=== PATIENT | female | born 1960 | race Caucasian/White ===

== ENCOUNTER 2016-08-26 18:36 | Inpatient (IN) | payer BC ==
[~2016-08-26] VITALS: Ht 165.1 cm; Wt 65.2 kg
[~2016-08-26 18:36] MED LIST: AMBIEN CR12.5 MG PO; ASPIRIN325 MG PO; AZITHROMYCIN250 MG PO; CELEBREX100 MG PO; CELEBREX200 MG PO; CLARITIN10 M3 PO; CLONAZEPAM0.5 MG PO; DIAZEPAM10 MG PO; DIAZEPAM5 MG PO; DOLOPHINE HCL10 MG PO; DOMP10T PO; DOMPERIDONE1 GM PO; DURAGESIC50 MCG TD; EFFIENT5 MG PO; ELAVIL25 MG PO; FLEXERIL10 MG PO; FOLIC ACID1 MG PO; KADIAN20 MG PO; LIPITOR40 MG PO; MORPHINE PUMP; NAPRELAN750 MG PO; NAPROXEN500 MG PO; NUCYNTA50 MG PO; OMEPRAZOLE40 M1 PO; PERCOCET 10-321 EACH PO; PERCOCET 10/1 TABLET PO; PROMETHAZINE HC25 M1 PO; PROTONIX40 MG PO; RESTORIL7.5 MG PO; TREXALL7.5 MG PO; VENTOLIN HFA18 GM IH; [UNRECOGNIZED DRUG - REMARK]
[2016-08-26 19:28] LABS: HEMATOCRIT 37.1 % (36.0-46.0); MCH 27.9 PG (29.0-34.0); MCHC 33.4 G/DL (30.0-36.0); MCV 83.6 FL (83-99); MEAN PLAT.VOLUME 10.4 uM^3 (9.5-12.4); PLATELET COUNT 399 K/uL (156-360); RBC DIS.WIDTH-CV 16.7 % (11.8-14.6); RBC DIS.WIDTH-SD 49.3 % (39-53); RED BLOOD COUNT 4.44 M/uL (3.80-5.20)
[2016-08-26 19:42] LABS: CHLORIDE 107 mEq/L (99-109); POTASSIUM 3.8 mEq/L (3.7-5.4); SODIUM 140 mEq/L (136-147)
[2016-08-26 19:44] LABS: GLUCOSE 145 mg/dL (70-99)
[2016-08-26 19:46] LABS: ANION GAP 11 MEQ/L (2-14); TOTAL BILIRUBIN 0.2 mg/dL (0.0-1.0)
[2016-08-26 19:48] LABS: ALKALINE PHOSPHATASE 177 IU/L (3-129); GFR ESTIMATE (CALCULATED) > 59 mL/min/
[2016-08-26 19:49] LABS: UREA NITROGEN (BUN) 15 mg/dL (9-23)
[2016-08-26 19:51] LABS: LIPASE 16 U/L (1.0-51.0)
[2016-08-26 20:28] LABS: EOSINOPHIL (%) 0.1 % (0-5); IMMATURE GRANULOCYTE (%) 0.3 % (0.0-0.7); IMMATURE GRANULOCYTE COUNT 0.5 K/uL; LYMPHOCYTE COUNT 1.2 K/uL (1.0-2.8); NEUTROPHIL (%) 86.2 % (45-76); NEUTROPHIL COUNT 14.6 K/uL (1.8-6.4)
[2016-08-26 22:33] LABS: ADD MIUA? YES; BILIRUBIN NEGATIVE; BLOOD SMALL; COLOR YELLOW ((YELLOW)); GLUCOSE (STRIP) NEGATIVE; KETONES 5; LEUKOCYTES TRACE; NITRITE NEGATIVE; PROTEIN (STRIP) 100; SPECIFIC GRAVITY 1.014 (1.000-1.030); UROBILINOGEN 0.2 MG/DL (0.2-1.0)
[2016-08-26 22:40] LABS: BACTERIA RARE /HPF; EPITHELIAL CELLS RARE /HPF; MUCUS NONE SEEN /LPF; RED BLOOD CELLS 0-5 /HPF (0-5); UCUL ADDED? NO; WHITE BLOOD CELLS 0-5 /HPF (0-5)
[2016-08-27] MEDS ORDERED: PROTONIX40 MG PO (01:18)
[2016-08-27] MEDS ORDERED: EFFEXOR XR75 MG PO (01:19)
[2016-08-27] MEDS ORDERED: ZOFRAN ODT4 MG PO (01:20)
[2016-08-27] MEDS ORDERED: ERGOCALCIF50000 UNIT PO (01:20)
[2016-08-27] MEDS ORDERED: BUSPAR10 MG PO (01:20)
[2016-08-27] MEDS ORDERED: PROMETHAZINE12.5 MG PR (01:21)
[2016-08-27 03:53] LABS: APPEARANCE CLEAR/COLORLESS
[2016-08-27 04:21] LABS: RED CELL AREA COUNTED 18; RED CELL DILUTION 1
[2016-08-27 04:22] LABS: WBC DILUTION 1
[2016-08-27 04:23] LABS: RED CELL COUNT 1 /MM^3 (0-1); WBC AREA COUNTED 18
[2016-08-27 04:26] LABS: WHITE CELL COUNT 3 /MM^3 (0-5); WHITE CELL RAW COUNT 5
[2016-08-27 04:27] LABS: CSF EOSINOPHILS 0 % (0-25); MONO RAW COUNT 48; MONONUCLEAR WBC'S 96 % (50-90); POLY RAW COUNT 2; POLYNUCLEAR WBC'S 4 % (0-3)
[2016-08-27 04:33] LABS: SPINAL FLD COMMENT OCCASIONAL MONOCYTES
[2016-08-27 06:18] VITALS: BP 120/66
[2016-08-27 06:59] VITALS: BP 116/63
[2016-08-27 07:11] LABS: HEMATOCRIT 32.7 % (36.0-46.0); MCH 27.6 PG (29.0-34.0); MCHC 32.7 G/DL (30.0-36.0); MCV 84.5 FL (83-99); MEAN PLAT.VOLUME 10.4 uM^3 (9.5-12.4); PLATELET COUNT 400 K/uL (156-360); RBC DIS.WIDTH-SD 51.1 % (39-53); RED BLOOD COUNT 3.87 M/uL (3.80-5.20); WHITE BLOOD COUNT 15.7 K/uL (4.1-10.2)
[2016-08-27 07:20] LABS: CARBON DIOXIDE (BICARBONATE) 25.7 MEQ/L (20-31)
[2016-08-27 07:24] LABS: TROP-I INTERPRETATION NEGATIVE; TROPONIN-I < 0.01 ng/mL (0.0-0.30)
[2016-08-27 07:27] LABS: ANION GAP 10 MEQ/L (2-14); CHLORIDE 111 MEQ/L (99-109); POTASSIUM 3.6 MEQ/L (3.7-5.4); SAMPLE HEMOLYSIS CHECK 0; SAMPLE ICTERIC CHECK 0; SAMPLE LIPEMIA CHECK 0; SODIUM 142 MEQ/L (136-147); TOTAL BILIRUBIN 0.2 MG/DL (0.0-1.0)
[2016-08-27 07:33] LABS: ALKALINE PHOSPHATASE 148 IU/L (3-129); GFR ESTIMATE (CALCULATED) > 59 mL/min/; GLUCOSE 125 mg/dL (70-99); UREA NITROGEN (BUN) 12 mg/dL (9-23)
[2016-08-27 07:43] LABS: EOSINOPHIL (%) 0.6 % (0-5); EOSINOPHIL COUNT 0.1 K/uL (0-0.3); IMMATURE GRANULOCYTE (%) 0.4 % (0.0-0.7); IMMATURE GRANULOCYTE COUNT 0.1 K/uL; LYMPHOCYTE COUNT 1.9 K/uL (1.0-2.8); MONOCYTE (%) 9.2 % (3-12); MONOCYTE COUNT 1.5 K/uL (0-0.8); NEUTROPHIL (%) 77.3 % (45-76); NEUTROPHIL COUNT 12.2 K/uL (1.8-6.4)
[2016-08-27 10:09] LABS: INTER. NORMALIZED RATIO 1.1; PROTHROMBIN TIME 10.9 (9.2-11.2)
[2016-08-27 10:41] VITALS: BP 126/62
[2016-08-27 14:23] LABS: AMPHETAMINES QUANT VALUE 0 NG/ML; BARBITUATES QUANT VALUE 0 NG/ML; BENZODIAZEPINES, URINE SCREEN POSITIVE (200 ng/mL); MARIJUANA QUANT VALUE 0 NG/ML; PHENCYCLIDINE QUANT VALUE 0 NG/ML
[2016-08-27 15:18] VITALS: BP 137/72
[2016-08-27 19:10] VITALS: BP 138/62
[2016-08-27 23:27] VITALS: BP 132/65
[2016-08-28 03:29] VITALS: BP 145/75
[2016-08-28 07:05] LABS: HEMATOCRIT 30.2 % (36.0-46.0); MCH 27.6 PG (29.0-34.0); MCHC 32.1 G/DL (30.0-36.0); MCV 85.8 FL (83-99); MEAN PLAT.VOLUME 10.3 uM^3 (9.5-12.4); PLATELET COUNT 367 K/uL (156-360); RBC DIS.WIDTH-CV 17.3 % (11.8-14.6); RBC DIS.WIDTH-SD 53.5 % (39-53); RED BLOOD COUNT 3.52 M/uL (3.80-5.20); WHITE BLOOD COUNT 12.5 K/uL (4.1-10.2)
[2016-08-28 07:15] VITALS: BP 146/69
[2016-08-28 07:41] LABS: ALKALINE PHOSPHATASE 154 IU/L (3-129); ANION GAP 9 MEQ/L (2-14); CHLORIDE 114 MEQ/L (99-109); GFR ESTIMATE (CALCULATED) > 59 mL/min/; GLUCOSE 108 mg/dL (70-99); POTASSIUM 3.5 MEQ/L (3.7-5.4); SAMPLE HEMOLYSIS CHECK 0; SAMPLE ICTERIC CHECK 0; SAMPLE LIPEMIA CHECK 0; SODIUM 145 MEQ/L (136-147); UREA NITROGEN (BUN) 9 mg/dL (9-23)
[2016-08-28 07:53] LABS: TOTAL BILIRUBIN 0.3 MG/DL (0.0-1.0)
[2016-08-28 10:18] VITALS: BP 138/67
[2016-08-28 15:13] VITALS: BP 131/69
[2016-08-28] MEDS ORDERED: NUCYNTA50 MG PO (19:06)
[2016-08-28 19:24] VITALS: BP 134/72
[2016-08-28 19:51] LABS: HEMATOCRIT 30.4 % (36.0-46.0); MCH 27.6 PG (29.0-34.0); MCHC 32.2 G/DL (30.0-36.0); MCV 85.6 FL (83-99); MEAN PLAT.VOLUME 10.5 uM^3 (9.5-12.4); PLATELET COUNT 375 K/uL (156-360); RBC DIS.WIDTH-CV 17.2 % (11.8-14.6); RBC DIS.WIDTH-SD 53.1 % (39-53); RED BLOOD COUNT 3.55 M/uL (3.80-5.20); WHITE BLOOD COUNT 12.1 K/uL (4.1-10.2)
[2016-08-28 23:45] VITALS: BP 119/66
[2016-08-29 07:54] VITALS: BP 120/35
== END 2016-08-29 10:17 | disposition home or self-care (01) | DRG 71 ==
LOC: EME 18:36 → EDOF 08-27 01:06 → 5EAST 08-27 04:38 → EDOF 08-27 04:38 → 5EAST 08-27 05:50
PROVIDERS: Emergency Medicine; Internal Medicine; Physician Assistant Medical
PROC: 009U3ZX Drainage of Spinal Canal, Percutaneous Approach, Diagnostic (ICD-10-PCS; principal; 2016-08-27)
DX: G93.40 Encephalopathy, unspecified (principal); F11.20 Opioid dependence, uncomplicated; K31.84 Gastroparesis; K21.9 Gastro-esophageal reflux disease without esophagitis; M06.9 Rheumatoid arthritis, unspecified; I25.10 Atherosclerotic heart disease of native coronary artery without angina pectoris; Z86.74 Personal history of sudden cardiac arrest; Z95.5 Presence of coronary angioplasty implant and graft; F41.9 Anxiety disorder, unspecified; F90.0 Attention-deficit hyperactivity disorder, predominantly inattentive type; F17.200 Nicotine dependence, unspecified, uncomplicated; F32.9 Major depressive disorder, single episode, unspecified; L40.50 Arthropathic psoriasis, unspecified; F13.90 Sedative, hypnotic, or anxiolytic use, unspecified, uncomplicated; I25.2 Old myocardial infarction; Z78.1 Physical restraint status; E86.0 Dehydration
CPT/HCPCS: 70450; 74177; 80053; 80306 90; 81003; 82140; 82803; 82945; 83605; 83690; 84157; 84443; 84484; 85025; 85027; 85610; 87040; 87070; 87205; 89051; 95819; 99281; 99285; G0480; J1630; J1650; J1885; J2060; J2270; J2765; J3370; J7030; J7042; S0028

== ENCOUNTER → 2016-10-27 | Outpatient (CLI) | payer BC ==
[~2016-10-27] MED LIST changes: +BUSPAR10 MG PO; +EFFEXOR XR75 MG PO; +ERGOCALCIF50000 UNIT PO; +PROMETHAZINE12.5 MG PR; +ZOFRAN ODT4 MG PO
== END | disposition home or self-care (01) ==
LOC: EEG 10-20 10:00
DX: R41.0 Disorientation, unspecified (principal)
CPT/HCPCS: 95954